=== PATIENT | male | born 1985 | race American Indian/Alaskan Native ===

== ENCOUNTER 2021-09-05 15:58 | Emergency (ER) | payer SELFPAY ==
[2021-09-05] MEDS ORDERED: KETOROLAC 60 MG/2 ML INJ IM ONE (17:38)
[2021-09-05] MEDS ORDERED: HYDROcodone/ACETAMINOPHEN 5-325 MG TAB PO ONE (17:38)
--- NOTE | 2021-09-05 17:38 | Emergency Department Report ---
- General Chief Complaint: Headache Stated Complaint: NESBITT, FEVER Time Seen by Provider: 09/05/21 17:06 Source: patient Mode of arrival: Ambulatory Limitations: No Limitations - History of Present Illness Initial Comments: 36-year-old male presents to the ER today with complaints of flulike symptoms. Patient states that his symptoms started this morning. Patient is actually here with 3 additional family members presented with similar symptoms. Reports headache, mild cough, diffuse body aches, and chills. He reports no wheezing, shortness of breath, GI or symptoms. He states that he did have the Pfizer vaccine back in March. He denies any recent travel. He has no significant past medical history. He admits to marijuana use but denies any tobacco use. He denies any illicit drug use. MD Complaint: cough - Related Data Previous Rx's Medication Instructions Recorded Last Taken Type Ibuprofen [Motrin] 800 mg PO Q8HR PRN #30 tablet 09/05/21 Unknown Rx Allergies Allergy/AdvReac Type Severity Reaction Status Date / Time No Known Allergies Allergy Verified 09/05/21 17:55 ED Review of Systems ROS: Stated complaint: NESBITT, FEVER Other details as noted in HPI Comment: All other systems reviewed and negative Constitutional: chills, fever ENT: denies: throat pain, dental pain, hearing loss, epistaxis, congestion Respiratory: cough. denies: orthopnea, shortness of breath, SOB with exertion, SOB at rest, wheezing Cardiovascular: denies: chest pain, palpitations, dyspnea on exertion, edema, syncope, paroxysmal nocturnal dyspnea Gastrointestinal: denies: abdominal pain, nausea, vomiting, diarrhea, constipation, hematemesis, hematochezia Genitourinary: denies: urgency, dysuria, frequency, hematuria, discharge, testicular pain, testicular mass Musculoskeletal: denies: back pain, joint swelling, arthralgia Skin: denies: rash, lesions, change in color, change in hair/nails, pruritus Neurological: headache. denies: weakness, numbness, paresthesias, confusion, a bnormal gait, vertigo Psychiatric: denies: anxiety, depression, auditory hallucinations, visual hallucinations, homicidal thoughts, suicidal thoughts Hematological/Lymphatic: denies: easy bleeding, easy bruising, swollen glands ED Past Medical Hx - Past Medical History Previous Medical History?: No - Surgical History Past Surgical History?: No - Medications Home Medications: Home Medications Medication Instructions Recorded Confirmed Last Taken Type Ibuprofen [Motrin] 800 mg PO Q8HR PRN #30 tablet 09/05/21 Unknown Rx ED Physical Exam - General Limitations: No Limitations General appearance: alert, in distress (Patient appears uncomfortable, mildly ill-appearing but overall not toxic) - Head Head exam: Present: atraumatic, normocephalic, normal inspection - Eye Eye exam: Present: normal appearance, PERRL, EOMI Pupils: Present: normal accommodation - ENT ENT exam: Present: normal exam, mucous membranes moist, TM's normal bilaterally - Neck Neck exam: Present: normal inspection, full ROM. Absent: meningismus - Respiratory Respiratory exam: Present: normal lung sounds bilaterally. Absent: respiratory distress, wheezes, rales, rhonchi - Cardiovascular Cardiovascular Exam: Present: regular rate, normal rhythm, normal heart sounds - GI/Abdominal GI/Abdominal exam: Present: soft. Absent: distended, tenderness, guarding, rebound - Neurological Exam Neurological exam: Present: alert, oriented X3, CN II-XII intact, normal gait - Psychiatric Psychiatric exam: Present: normal affect, normal mood - Skin Skin exam: Present: intact ED Course Vital Signs 09/05/21 09/05/21 16:30 18:57 Temperature 101.4 F H 98.7 F Pulse Rate 111 H 102 H Respiratory 18 17 Rate Blood Pressure 146/93 [Right] O2 Sat by Pulse 100 99 Oximetry ED Medical Decision Making - Lab Data Result diagrams: 09/05/21 17:41 09/05/21 17:41 - Radiology Data Radiology results: report reviewed Patient: TANNER VOGEL MR#: [id number] : 1985 Acct:[id number] Age/Sex: 36 / M ADM Date: 09/05/21 Loc: ED Attending Dr: Ordering Physician: CATIA DONNELLY Date of Service: 09/05/21 Procedure(s): XR chest routine 2V Accession Number(s): [id number] cc: CATIA DONNELLY Fluoro Time In Minutes: CHEST PA AND LATERAL VIEWS INDICATION: fever/couhg. COMPARISON: None. FINDINGS: Support devices: None. Heart: Within normal limits. Lungs/Pleura: No acute pulmonary or pleural findings. IMPRESSION: 1. No acute findings. Signer Name: Spenser Cruz MD Signed: 09/05/2021 6:01 PM Workstation Name: [id number] Transcribed By: PAOLA Dictated By: Spenser Cruz MD Electronically Authenticated By: Spenser Cruz MD Signed Date/Time: 09/05/211800 DD/ 99 TD/TT: - Medical Decision Making He reports feeling much better after meds. Repeat vital signs show improvement of his temperature and his heart rate, and remaining vital signs have been stable. Rapid flu negative. Chest x-ray shows no acute abnormalities. CBC and CMP unremarkable. Patient currently appears to be feeling much better. He is not toxic, is not in significant distress, he is neurologically intact with a normal gait. He has no meningeal signs on exam. He is not in any respiratory distress. Abdomen soft and nontender. Discussed results with patient. Suspect nonspecific viral syndrome at this time, but I did recommend to patient who is also here with his additional 3 family members who presented with similar symptoms that they get a COVID-19 test as this could still be a possibility of his symptoms. Patient will be given medication for his symptoms. Patient expressed understanding for instructions and agree with plan. Patient was stable at time of discharge. Critical care attestation.: If time is entered above; I have spent that time in minutes in the direct care of this critically ill patient, excluding procedure time. ED Disposition Clinical Impression: Viral syndrome Disposition: HOME / SELF CARE / HOMELESS Is pt being admited?: No Does the pt Need Aspirin: No Condition: Stable Instructions: Viral Illness, Adult Additional Instructions: I recommend taking Tylenol and ibuprofen as needed to help with any pain or fever. I also recommend that you get a COVID-19 test, as this could still be the cause of your symptoms. You can follow-up with any local pharmacy or urgent care to get it done. You can take [id number]-bis-[id number] cough cold medications to help with symptoms. Drink lots of fluids. Follow-up closely with your PCP. Return to the ER if your symptoms worsens or changes in any way. Prescriptions: Ibuprofen [Motrin] 800 mg PO Q8HR PRN #30 tablet PRN Reason: pain Referrals: PRIMARY CARE, [Primary Care Provider] - 3-5 Days Forms: Work/School Release Form(ED) Time of Disposition: 19:04
--- NOTE | 2021-09-05 18:05 | XRay Report ---
CHEST PA AND LATERAL VIEWS INDICATION: fever/couhg. COMPARISON: None. FINDINGS: Support devices: None. Heart: Within normal limits. Lungs/Pleura: No acute pulmonary or pleural findings. IMPRESSION: 1. No acute findings. Signer Name: Spenser Cruz MD Signed: 09/05/2021 6:01 PM Workstation Name: [id number]
[2021-09-05 18:13] LABS: Basophils # (Auto) 0.1 K/mm3 (0.0-0.1); Basophils % (Auto) 0.9 % (0.0-1.8); Eosinophils # (Auto) 0.1 K/mm3 (0.0-0.4); Eosinophils % (Auto) 0.9 % (0.0-4.3); Hematocrit 47.1 % (35.5-45.6); Hemoglobin 15.3 gm/dl (11.8-15.2); Lymphocytes # (Auto) 0.7 K/mm3 (1.2-5.4); Lymphocytes % (Auto) 7.6 % (13.4-35.0); Mean Corpuscular HGB Conc 32 % (32-34); Mean Corpuscular Volume 91 fl (84-94); Monocytes # (Auto) 1.3 K/mm3 (0.0-0.8); Monocytes % (Auto) 14.1 % (0.0-7.3); Platelet Count 386 K/mm3 (140-440); Red Blood Count 5.16 M/mm3 (3.65-5.03); Red Cell Distribution Width 14.7 % (13.2-15.2)
[2021-09-05 18:24] LABS: Alanine Aminotransferase 14 units/L (7-56); Albumin 4.1 g/dL (3.9-5); BUN/Creatinine Ratio 9; Blood Urea Nitrogen 10 mg/dL (9-20); Hemolysis Index 13
[2021-09-05 19:27] VITALS: BP 125/78
== END 2021-09-05 19:27 | disposition home or self-care (01) ==
LOC: ED 15:58
DX: B34.9 Viral infection, unspecified (principal); R51.9 Headache, unspecified; R05.9 Cough, unspecified; M79.18 Myalgia, other site; Z79.899 Other long term (current) drug therapy
CPT/HCPCS: 36415; 71046; 80053; 85025; 87400; 96372; 99284; J1885

== ENCOUNTER 2021-09-18 11:25 | Emergency (ER) | payer SELFPAY ==
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
[2021-09-18 13:39] VITALS: BP 124/81
== END 2021-09-18 13:39 | disposition home or self-care (01) ==
LOC: ED 11:25
DX: S16.1XXA Strain of muscle, fascia and tendon at neck level, initial encounter (principal); V89.2XXA Person injured in unspecified motor-vehicle accident, traffic, initial encounter; Y93.89 Activity, other specified; Y99.8 Other external cause status
CPT/HCPCS: 72040; 99283